=== PATIENT | male | born 1985 | race Caucasian/White ===

== ENCOUNTER 2020-07-05 22:37 | Emergency (ER) | payer BC, OTHER ==
[~2020-07-05] VITALS: Ht 177.8 cm; Wt 71.0 kg
[2020-07-05 22:39] VITALS: BP 110/77
--- NOTE | 2020-07-05 22:42 | NUR ---
STS 3 COCKTAILS
[2020-07-05] MEDS ORDERED: PLEASE ENTER ALLERGIES MC SCH (23:00)
[2020-07-05] MEDS ORDERED: ACETAMINOPHEN 325 MG TABLET PO ONE (23:00)
[2020-07-05] MEDS ORDERED: ACETAMINOPHEN 325 MG TABLET ONE (23:04)
== END 2020-07-05 23:10 | disposition home or self-care (01) ==
LOC: EDBD 22:37 → ED 23:00
DX: S00.81XA Abrasion of other part of head, initial encounter (principal); S09.90XA Unspecified injury of head, initial encounter; F10.129 Alcohol abuse with intoxication, unspecified; Y90.0 Blood alcohol level of less than 20 mg/100 ml; X58.XXXA Exposure to other specified factors, initial encounter; Y93.89 Activity, other specified; Y92.89 Other specified places as the place of occurrence of the external cause; Y99.8 Other external cause status
CPT/HCPCS: 99283

== ENCOUNTER 2020-07-06 02:45 | Emergency (ER) | payer SELFPAY ==
[~2020-07-06] VITALS: Ht 180.3 cm; Wt 70.5 kg
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
[2020-07-06 05:20] VITALS: BP 111/78
== END 2020-07-06 05:33 | disposition home or self-care (01) ==
LOC: ED 03:50
DX: S09.90XA Unspecified injury of head, initial encounter (principal); S00.81XA Abrasion of other part of head, initial encounter; F10.229 Alcohol dependence with intoxication, unspecified; F17.210 Nicotine dependence, cigarettes, uncomplicated; W00.0XXA Fall on same level due to ice and snow, initial encounter; Y93.23 Activity, snow (alpine) (downhill) skiing, snowboarding, sledding, tobogganing and snow tubing; Y92.89 Other specified places as the place of occurrence of the external cause; Y99.8 Other external cause status; Y90.0 Blood alcohol level of less than 20 mg/100 ml
CPT/HCPCS: 70450; 99284